=== PATIENT | female | born 1955 ===

== ENCOUNTER → 2019-11-17 11:50 | Outpatient (REF) | payer BC, SELFPAY | LOC: ANHLAB 11:50 | PROVIDERS: Visit Provider Nurse Practitioner | DX: D49.2 Neoplasm of unspecified behavior of bone, soft tissue, and skin (principal) | CPT/HCPCS: 88305 ==

== ENCOUNTER → 2020-02-02 14:26 | Outpatient (REF) | payer BC, SELFPAY | LOC: ANHLAB 14:26 | PROVIDERS: PCP Family Medicine; Visit Provider Nurse Practitioner | DX: D22.5 Melanocytic nevi of trunk (principal) | CPT/HCPCS: 88305 ==